=== PATIENT | male | born 1945 | race Caucasian/White ===

== ENCOUNTER 2017-08-07 07:45 | Outpatient (CLI) | payer MEDICARE ==
[2017-08-07 12:28] LABS: BASOPHILS # (AUTO) 0.1 10^3/uL (0.0-0.1); BASOPHILS % (AUTO) 0.8 %; EOSINOPHILS # (AUTO) 0.6 10^3/uL (0.0-0.7); EOSINOPHILS % (AUTO) 8.1 %; HGB - HEMOGLOBIN 15.3 g/dL (14.0-18.0); LYMPHOCYTES # (AUTO) 1.9 10^3/uL (1.5-3.5); LYMPHOCYTES % (AUTO) 26.2 %; MEAN CORPUSCULAR HEMOGLOBIN 30.4 pg (27.0-31.0); MEAN CORPUSCULAR VOLUME 89.3 fL (80.0-94.0); MEAN PLATELET VOLUME 7.7 fL (7.4-11.4); MONOCYTES # (AUTO) 0.7 10^3/uL (0.0-1.0); MONOCYTES % (AUTO) 9.9 %; NEUTROPHILS # (AUTO) 4.1 10^3/uL (1.5-6.6); PLT - PLATELET COUNT 323 10^3/uL (130-450); RED BLOOD COUNT 5.05 10^6/uL (4.70-6.10); RED CELL DISTRIBUTION WIDTH 13.2 % (12.0-15.0); WHITE BLOOD COUNT 7.4 x10^3/uL (4.8-10.8)
[2017-08-07 13:02] LABS: ALBUMIN 4.2 g/dL (3.2-5.5); ALBUMIN/GLOBULIN RATIO 1.3 (1.0-2.2); ALKALINE PHOSPHATASE 54 IU/L (42-121); ALT ALANINE AMINOTRANSFERASE 16 IU/L (10-60); AST ASPARTATE AMINOTRANSFERASE 17 IU/L (10-42); BILIRUBIN,TOTAL 0.5 mg/dL (0.2-1.0); BUN - BLOOD UREA NITROGEN 21 mg/dL (6-20); CALCIUM 9.5 mg/dL (8.5-10.3); CARBON DIOXIDE - CO2 26 mmol/L (21-32); CHLORIDE 103 mmol/L (101-111); CHOL/HDL RATIO 3.3 (<5.0); CHOLESTEROL 170 mg/dL; CREATININE 0.8 mg/dL (0.6-1.2); GFR - MDRD 96 (>89); GLUCOSE 106 mg/dL (70-100); HDL CHOLESTEROL 52 mg/dL; LDL CHOLESTEROL,CALCULATED 103 mg/dL; SODIUM 136 mmol/L (135-145); TOTAL PROTEIN 7.4 g/dL (6.7-8.2); VLDL CHOLESTEROL 15 mg/dL
== END 2017-08-07 07:46 | disposition home or self-care (01) ==
LOC: LAB.WCP 07:45
PROVIDERS: ATTEND Family Medicine
DX: Z13.220 Encounter for screening for lipoid disorders (principal); I10 Essential (primary) hypertension
CPT/HCPCS: 36415; 80053; 80061; 85025; G0103; 84153

== ENCOUNTER 2018-03-30 12:47 | Outpatient (CLI) | payer MEDICARE ==
[2018-03-30 12:37] LABS: BILIRUBIN,URINE NEGATIVE (NEGATIVE); GLUCOSE, URINE (UA) NEGATIVE (NEGATIVE); KETONES,URINE (UA) NEGATIVE (NEGATIVE); LEUKOCYTE ESTERASE, URINE NEGATIVE (NEGATIVE); NITRITE,URINE NEGATIVE (NEGATIVE); OCCULT BLOOD,URINE NEGATIVE (NEGATIVE); PROTEIN,URINE NEGATIVE (NEGATIVE); UROBILINOGEN,URINE 0.2 (NORMAL) E.U./dL (NORMAL)
[2018-03-30 12:39] LABS: CLARITY,URINE CLEAR (CLEAR)
[2018-03-30 12:43] LABS: CALCIUM 9.6 mg/dL (8.5-10.3); CREATININE 0.9 mg/dL (0.6-1.2)
[2018-03-30 13:11] LABS: BACTERIA,URINE Rare /HPF (None Seen); HB2 TOTAL 16.4 g/dL; HEMOGLOBIN A1C 0.62 g/dL; HEMOGLOBIN A1C % 5.6 % (4.6-6.2); RBC,URINE 0-5 /HPF (0-5); SQUAMOUS EPITHELIAL CELL,UR NONE SEEN (<= Few)
== END 2018-03-30 12:48 | disposition home or self-care (01) ==
LOC: LAB.WCP 12:47
PROVIDERS: ATTEND Family Medicine
DX: R73.9 Hyperglycemia, unspecified (principal); I10 Essential (primary) hypertension
CPT/HCPCS: 36415; 80048; 81001; 83036

== ENCOUNTER 2018-11-05 08:00 | Outpatient (CLI) | payer MEDICARE ==
[2018-11-05 12:50] LABS: BASOPHILS # (AUTO) 0.1 10^3/uL (0.0-0.1); BASOPHILS % (AUTO) 1.1 %; EOSINOPHILS # (AUTO) 0.6 10^3/uL (0.0-0.7); HGB - HEMOGLOBIN 14.9 g/dL (14.0-18.0); LYMPHOCYTES # (AUTO) 1.8 10^3/uL (1.5-3.5); LYMPHOCYTES % (AUTO) 24.2 %; MEAN CORPUSCULAR HEMOGLOBIN 29.9 pg (27.0-31.0); MEAN CORPUSCULAR HGB CONC 33.4 g/dL (32.0-36.0); MEAN CORPUSCULAR VOLUME 89.6 fL (80.0-94.0); MEAN PLATELET VOLUME 8.1 fL (7.4-11.4); MONOCYTES # (AUTO) 0.8 10^3/uL (0.0-1.0); MONOCYTES % (AUTO) 10.7 %; NEUTROPHILS # (AUTO) 4.1 10^3/uL (1.5-6.6); PLT - PLATELET COUNT 347 10^3/uL (130-450); RED BLOOD COUNT 4.98 10^6/uL (4.70-6.10); RED CELL DISTRIBUTION WIDTH 13.4 % (12.0-15.0); WHITE BLOOD COUNT 7.3 x10^3/uL (4.8-10.8)
[2018-11-05 13:22] LABS: ALBUMIN 4.2 g/dL (3.2-5.5); ALBUMIN/GLOBULIN RATIO 1.4 (1.0-2.2); ALKALINE PHOSPHATASE 51 IU/L (42-121); ALT ALANINE AMINOTRANSFERASE 14 IU/L (10-60); AST ASPARTATE AMINOTRANSFERASE 21 IU/L (10-42); BILIRUBIN,TOTAL 1.3 mg/dL (0.2-1.0); BUN - BLOOD UREA NITROGEN 19 mg/dL (6-20); CALCIUM 9.3 mg/dL (8.5-10.3); CARBON DIOXIDE - CO2 27 mmol/L (21-32); CHLORIDE 102 mmol/L (101-111); CHOL/HDL RATIO 3.6 (<5.0); CHOLESTEROL 167 mg/dL; CREATININE 0.8 mg/dL (0.6-1.2); GFR - MDRD 95 (>89); GLUCOSE 108 mg/dL (70-100); HDL CHOLESTEROL 47 mg/dL; LDL CHOLESTEROL,CALCULATED 107 mg/dL; LDL/HDL RATIO 2.3 (<3.6); SODIUM 138 mmol/L (135-145); TOTAL PROTEIN 7.1 g/dL (6.7-8.2); VLDL CHOLESTEROL 13 mg/dL
[2018-11-05 13:23] LABS: PSA FREE 0.093 ng/mL (0.16-2.81)
[2018-11-05 13:25] LABS: PSA TOTAL 0.425 ng/mL (0.000-2.000)
[2018-11-05 13:32] LABS: HB2 TOTAL 16.3 g/dL; HEMOGLOBIN A1C 0.65 g/dL; HEMOGLOBIN A1C % 5.8 % (4.6-6.2)
== END 2018-11-05 23:59 | disposition home or self-care (01) ==
LOC: LAB.WCP 08:00
PROVIDERS: ATTEND Family Medicine
DX: I10 Essential (primary) hypertension (principal); R73.9 Hyperglycemia, unspecified; N40.1 Benign prostatic hyperplasia with lower urinary tract symptoms
CPT/HCPCS: 36415; 80053; 80061; 83036; 83721; 84153; 84154; 85025

== ENCOUNTER 2019-05-20 08:00 | Outpatient (CLI) | payer MEDICARE ==
[2019-05-20 19:43] LABS: HB2 TOTAL 15.9 g/dL; HEMOGLOBIN A1C 0.63 g/dL; HEMOGLOBIN A1C % 5.8 % (4.6-6.2)
== END 2019-05-20 08:01 | disposition home or self-care (01) ==
LOC: LAB.N 08:00
PROVIDERS: ATTEND Family Medicine
DX: R73.9 Hyperglycemia, unspecified (principal)
CPT/HCPCS: 36415; 83036

== ENCOUNTER 2019-07-11 13:37 | Outpatient (CLI) | payer MEDICARE ==
--- NOTE | 2019-07-12 17:15 | XRAY Report ---
Reason: PND Procedure Date: 07/11/2019 Accession Number: [id number] / [id number] Procedure: XRN - Chest 2 View X-Ray CPT Code: 41893 Final Report FULL RESULT: EXAM: CHEST RADIOGRAPHY EXAM DATE: 07/11/2019 01:53 PM. CLINICAL HISTORY: Dyspnea COMPARISON: 05/02/2015 9:50 AM. TECHNIQUE: 2 views. FINDINGS: Lungs/Pleura: No focal opacities evident. No pleural effusion. No pneumothorax. Normal volumes. Mediastinum: Heart and mediastinal contours are unremarkable. Other: Degenerative changes in the spine. IMPRESSION: No acute process seen in the chest. RADIA
== END 2019-07-11 13:38 | disposition home or self-care (01) ==
LOC: DI.N 13:37
PROVIDERS: ATTEND Physician Assistant Medical
DX: R06.00 Dyspnea, unspecified (principal)
CPT/HCPCS: 36415; 71046; 80048; 83880; 85027

== ENCOUNTER 2019-07-11 13:54 | Outpatient (CLI) | payer MEDICARE ==
[2019-07-11 18:31] LABS: HGB - HEMOGLOBIN 15.6 g/dL (14.0-18.0); MEAN CORPUSCULAR VOLUME 93.7 fL (80.0-94.0); MEAN PLATELET VOLUME 9.6 fL (7.4-11.4); RED BLOOD COUNT 5.2 10^6/uL (4.70-6.10); RED CELL DISTRIBUTION WIDTH 12.9 % (12.0-15.0); WHITE BLOOD COUNT 10.4 x10^3/uL (4.8-10.8)
[2019-07-11 18:40] LABS: CALCIUM 9.6 mg/dL (8.5-10.3); CREATININE 0.9 mg/dL (0.6-1.2)
== END 2019-07-11 23:59 | disposition home or self-care (01) ==
LOC: LAB.N 13:54
PROVIDERS: ATTEND Physician Assistant Medical
DX: R06.09 Other forms of dyspnea (principal)
CPT/HCPCS: 36415; 80048; 83880; 85027

== ENCOUNTER 2020-01-16 09:53 | Outpatient (CLI) | payer MEDICARE ==
[2020-01-16 12:27] LABS: BASOPHILS # (AUTO) 0.1 10^3/uL (0.0-0.1); EOSINOPHILS # (AUTO) 0.5 10^3/uL (0.0-0.7); EOSINOPHILS % (AUTO) 4.9 %; HGB - HEMOGLOBIN 14.3 g/dL (14.0-18.0); LYMPHOCYTES # (AUTO) 1.6 10^3/uL (1.5-3.5); LYMPHOCYTES % (AUTO) 16.9 %; MEAN CORPUSCULAR HGB CONC 31.4 g/dL (32.0-36.0); MEAN CORPUSCULAR VOLUME 92.3 fL (80.0-94.0); MEAN PLATELET VOLUME 9.4 fL (7.4-11.4); MONOCYTES % (AUTO) 10.1 %; NEUTROPHILS # (AUTO) 6.3 10^3/uL (1.5-6.6); NEUTROPHILS % (AUTO) 66.1 %; PLT - PLATELET COUNT 361 10^3/uL (130-450); RED BLOOD COUNT 4.93 10^6/uL (4.70-6.10); RED CELL DISTRIBUTION WIDTH 12.9 % (12.0-15.0); WHITE BLOOD COUNT 9.4 x10^3/uL (4.8-10.8)
[2020-01-16 12:49] LABS: HB2 TOTAL 14.9 g/dL; HEMOGLOBIN A1C 0.61 g/dL; HEMOGLOBIN A1C % 5.9 % (4.6-6.2)
[2020-01-16 12:59] LABS: ALBUMIN/GLOBULIN RATIO 1.4 (1.0-2.2); ALKALINE PHOSPHATASE 58 IU/L (42-121); ALT ALANINE AMINOTRANSFERASE 12 IU/L (10-60); AST ASPARTATE AMINOTRANSFERASE 14 IU/L (10-42); BILIRUBIN,TOTAL 0.8 mg/dL (0.2-1.0); BUN - BLOOD UREA NITROGEN 35 mg/dL (6-20); CALCIUM 9.2 mg/dL (8.5-10.3); CARBON DIOXIDE - CO2 26 mmol/L (21-32); CHLORIDE 102 mmol/L (101-111); CHOL/HDL RATIO 3.3 (<5.0); CHOLESTEROL 161 mg/dL; CREATININE 1.2 mg/dL (0.6-1.2); GLUCOSE 97 mg/dL (70-100); HDL CHOLESTEROL 49 mg/dL; LDL CHOLESTEROL,CALCULATED 89 mg/dL; LDL/HDL RATIO 1.8 (<3.6); SODIUM 139 mmol/L (135-145); TOTAL PROTEIN 6.8 g/dL (6.7-8.2); VLDL CHOLESTEROL 23 mg/dL
== END 2020-01-16 23:59 | disposition home or self-care (01) ==
LOC: LAB.WCP 09:53
PROVIDERS: ATTEND Family Medicine
DX: R73.9 Hyperglycemia, unspecified (principal); Z13.220 Encounter for screening for lipoid disorders; N40.1 Benign prostatic hyperplasia with lower urinary tract symptoms; J32.9 Chronic sinusitis, unspecified; G47.30 Sleep apnea, unspecified
CPT/HCPCS: 36415; 80053; 80061; 83036; 83721; 84153; 84443; 85025

== ENCOUNTER 2020-11-09 19:34 | Outpatient (CLI) | payer MEDICARE | END 2020-11-09 19:35 | disposition critical access hospital (66) | LOC: EMS 19:34 | DX: I46.9 Cardiac arrest, cause unspecified (principal) | CPT/HCPCS: A0425; A0427 ==

== ENCOUNTER 2020-11-09 19:42 | Emergency (ER) | payer MEDICARE ==
[2020-11-09] MEDS ORDERED: AMIODARONE 360 MG/200 ML 200 ML IV ONE (19:55)
[2020-11-09] MEDS ORDERED: SODIUM CHLORIDE 0.9% 1,000 ML IV STA ×2 (19:56→20:27)
[2020-11-09 20:05] LABS: EOSINOPHILS % (AUTO) 3.7 %; HCT - HEMATOCRIT 48.7 % (42.0-52.0); HGB - HEMOGLOBIN 15.2 g/dL (14.0-18.0); LYMPHOCYTES % (AUTO) 31.1 %; MEAN CORPUSCULAR HGB CONC 31.2 g/dL (32.0-36.0); MEAN CORPUSCULAR VOLUME 92.9 fL (80.0-94.0); MONOCYTES % (AUTO) 7.3 %; PLT - PLATELET COUNT 420 10^3/uL (130-450); RED BLOOD COUNT 5.24 10^6/uL (4.70-6.10); RED CELL DISTRIBUTION WIDTH 13.4 % (12.0-15.0); WHITE BLOOD COUNT 18.9 x10^3/uL (4.8-10.8)
[2020-11-09 20:07] LABS: ABNORMAL LYMPHS % (MANUAL) 0 %
--- NOTE | 2020-11-09 20:10 | ED Physician Documentation ---
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 He got pale and passed out. He did not respond. EMS was called and they found him in V. fib. CPR was started by prehospital providers after just a few minutes.) Preceding symptoms: Diaphoresis, Weakness, NV Contributing factors: Other (hypertension). No: CAD, Diabetes Witnessed: Arrest witnessed Fall: No fall Bystander CPR: No bystander CPR, Downtime before CPR (4 minutes) EMS findings: Apneic, Pulseless, V fib Treatment GEOMETRY PROFESSOR: CPR, Defibrillated, Intubated, Epi, Amiodarone Advanced directive: No advanced directive Review of Systems Unable to obtain: Unresponsive, Other (info subsequently from in ER) Constitutional: denies: Fever Cardiac: denies: Chest pain / pressure Respiratory: denies: Cough GI: denies: Abdominal Pain, Vomiting, Diarrhea Neurologic: reports: Generalized weakness (just today after work) PD PAST MEDICAL HISTORY - Past Medical History Cardiovascular: Hypertension Respiratory: None Neuro: None Endocrine/Autoimmune: None - Present Medications Home Medications: Ambulatory Orders Medication Instructions Recorded Confirmed Hydrochlorothiazide 25 mg PO DAILY 11/09/20 11/09/20 Losartan Potassium [Cozaar] 100 mg PO DAILY 11/09/20 11/09/20 - Allergies Allergies/Adverse Reactions: Allergies Allergy/AdvReac Type Severity Reaction Status Date / Time No Known Drug Allergies Allergy Verified 11/09/20 20:37 - Living Situation Living Situation: reports: With spouse/s.o. Living Arrangement: reports: At home - Social History Does the pt smoke?: No PD ED PE NORMAL - Vitals Vital signs reviewed: Yes - General General: Other (Arrived intubated with ROSC, pulses palpable. Some effort of breathing over bagged rate. ) - HEENT HEENT: Pharynx benign, Other (ETT in place, good breath sounds bilaterally. ) - Neck Neck: No JVD - Cardiac Cardiac: RRR, No murmur - Respiratory Respiratory: Clear bilaterally - Abdomen Abdomen: Other (mild distension of abdomen). No: Normal bowel sounds (diminished) - Derm Derm: Normal color, Warm and dry - Neuro Neuro: Other (some respiratory effort with BVM assisting. ) Eye Opening: None Motor: None Verbal: None (intubated) GCS Score: 3 Results - Vitals Vitals: Vital Signs - 24 hr 11/09/20 11/09/20 11/09/20 19:42 20:34 20:37 Temperature 35.8 C L Heart Rate 117 H 96 99 Respiratory 15 Rate Blood Pressure 166/95 H 114/77 O2 Saturation 99 99 11/09/20 11/09/20 20:50 20:52 Temperature 35.8 C L 35.8 C L Heart Rate 91 101 H Respiratory 21 12 Rate Blood Pressure 120/71 121/75 O2 Saturation 94 100 Oxygen O2 Source Room air - EKG (time done) 20:29 Rate: Rate (enter#) (100) Intervals: LBBB Ischemia: ST elevation c/w ischemia (anterior leads) Compare to prior EKG: Old EKG unavailable - Labs Labs: Laboratory Tests 11/09/20 11/09/20 11/09/20 19:58 19:58 19:58 WBC 18.9 H RBC 5.24 Hgb 15.2 Hct 48.7 MCV 92.9 MCH 29.0 MCHC 31.2 L RDW 13.4 Plt Count 420 MPV 9.0 Neut # (Auto) Not Reportable Lymph # (Auto) Not Reportable [place] # (Auto) Not Reportable Eos # (Auto) Not Reportable Baso # (Auto) Not Reportable Absolute Nucleated RBC Not Reportable Total Counted 100 Band Neuts % (Manual) 3 Abnorm Lymph % (Manual) 0 Metamyelocytes % 3 H Nucleated RBC % Not Reportable Neutrophils # (Manual) 9.3 H Lymphocytes # (Manual) 7.2 H Monocytes # (Manual) 1.1 H Eosinophils # (Manual) 0.8 H Basophils # (Manual) 0.0 Differential Comment MANUAL DIFFERENTIAL WBC Morphology NORMAL APPEARANCE Platelet Estimate NORMAL (130-450,000) Platelet Morphology NORMAL APPEARANCE RBC Morph Micro Appear NORMAL APPEARANCE PT 13.1 H INR 1.2 APTT 26.2 Bld Gas Analysis Time Sample Site ABG pH ABG pCO2 ABG pO2 ABG HCO3 ABG Total CO2 ABG O2 Saturation ABG Base Excess Noel Test Respiration Rate O2 Delivery Device Vent Mode FiO2 Tidal Volume PEEP Sodium 138 Potassium 3.1 L Chloride 104 Carbon Dioxide 17 L Anion Gap 17.0 H BUN 22 H Creatinine 1.0 Estimated GFR (MDRD) 73 L Glucose 202 H Calcium 9.2 Total Bilirubin 1.2 H AST 205 H ALT 174 H Alkaline Phosphatase 71 Troponin I High Sens Total Protein 7.2 Albumin 4.1 Globulin 3.1 Albumin/Globulin Ratio 1.3 Lipase 30 11/09/20 11/09/20 19:58 20:15 WBC RBC Hgb Hct MCV MCH MCHC RDW Plt Count MPV Neut # (Auto) Lymph # (Auto) [place] # (Auto) Eos # (Auto) Baso # (Auto) Absolute Nucleated RBC Total Counted Band Neuts % (Manual) Abnorm Lymph % (Manual) Metamyelocytes % Nucleated RBC % Neutrophils # (Manual) Lymphocytes # (Manual) Monocytes # (Manual) Eosinophils # (Manual) Basophils # (Manual) Differential Comment WBC Morphology Platelet Estimate Platelet Morphology RBC Morph Micro Appear PT INR APTT Bld Gas Analysis Time 2020 Sample Site LEFT RADIAL ABG pH 7.22 L ABG pCO2 43 ABG pO2 239 H* ABG HCO3 16.8 L ABG Total CO2 18.2 L ABG O2 Saturation 99 H ABG Base Excess -10.5 L Noel Test POSITIVE Respiration Rate 12 O2 Delivery Device VENTILATOR Vent Mode ASSIST/CONTROL FiO2 100.00 Tidal Volume 500 PEEP 5 Sodium Potassium Chloride Carbon Dioxide Anion Gap BUN Creatinine Estimated GFR (MDRD) Glucose Calcium Total Bilirubin AST ALT Alkaline Phosphatase Troponin I High Sens 136.3 H* Total Protein Albumin Globulin Albumin/Globulin Ratio Lipase - Rads (name of study) chest xray Radiology: Prelim report reviewed (ETT in good position. bilateral upper henson congestion likely edema. ), See rad report PD MEDICAL DECISION MAKING - ED course Complexity details: reviewed results, considered differential (acute cardiac vfib arrest with ROSC by EMS. Presume acute cardiac event. ) ED course: And had an acute witnessed collapse with EMS findings of V. fib arrest and prehospital ACLS measures leading to ROSC. The patient arrives with intubation and palpable pulses and adequate blood pressure just about 100 systolic. Post resuscitative measures were initiated with amiodarone drip and low-dose norepinephrine. He was given aspirin rectally and cooling was initiated. He did have some breathing effort and bucking at the tube intermittently so given Ativan initially. Anesthesia was present in the ER and placed a central line. We will initiate propofol and heparin drips as well. Initial emphasis was on proper tube placement and evaluation of blood pressure and heart rate. As soon as possible, we did obtain an EKG during the efforts and this showed a left bundle branch with even that at a likely ST elevations in the anterior leads. Contact was made with [facility] who initially placed us in contact with the calciminer. The calciminer asked that we contact Dr. Rockwell who is on for cardiology. I talked with him and we sent an EKG to the ER. He asked that we contact the ER directly. I talked with Dr. Miller in the emergency room who accepted transfer of the patient. The patient remained stable with now some shoulder and arm movements, breathing rate slightly above the ventilator. Blood pressure remains adequate at between 110 and 120 systolic. Heart rate remained stable in the 80s. Helicopter transfer will be initiated. The patient is a [facility] patient and we did contact [facility] coordinating provider who gave approval for treatment and transfer to whatever facility we deemed appropriate. 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 - Critical Care Time(min): 65 Time Includes: Direct patient care, Reassess patient, Coordinate care, Medical consult, Family consult for tx dec Data interpretation: Labs, Pulse ox, ABG, CXR Procedures excluded from critical care time: EKG Departure - Departure Disposition: 02 Transfer Acute Care Hosp Clinical Impression: Cardiac arrest, Signs of return of spontaneous circulation, Ventricular fibrillation Myocardial infarction Qualifiers: Myocardial infarction type: unspecified Involved coronary artery: unspecified coronary artery Qualified Code(s): I21.9 - Acute myocardial infarction, unspecified Condition: Critical Record reviewed to determine appropriate education?: Yes
[2020-11-09 20:16] LABS: INR 1.2 (0.8-1.2); PT - PROTHROMBIN TIME 13.1 secs (9.9-12.6)
[2020-11-09 20:20] LABS: ALBUMIN 4.1 g/dL (3.2-5.5); ALBUMIN/GLOBULIN RATIO 1.3 (1.0-2.2); BILIRUBIN,TOTAL 1.2 mg/dL (0.2-1.0); CALCIUM 9.2 mg/dL (8.5-10.3); POTASSIUM 3.1 mmol/L (3.5-5.0); TOTAL PROTEIN 7.2 g/dL (6.7-8.2)
[2020-11-09 20:23] LABS: PARTIAL THROMBOPLASTIN TIME 26.2 secs (24.9-33.3)
[2020-11-09 20:24] LABS: ABG PCO2 43 mmHg (34-45); ABG PH 7.22 (7.35-7.45)
--- NOTE | 2020-11-09 20:24 | XRAY Report ---
PROCEDURE: Chest 1 View X-Ray INDICATIONS: chest pain TECHNIQUE: One view of the chest was acquired. COMPARISON: CXR 07/11/2019. FINDINGS: Surgical changes and devices: Endotracheal tube in the lower trachea approximately 3.57 m above the c lorrie. External pacing pads. Lungs and pleura: No pleural effusions or pneumothorax. Bilateral upper lobe airspace opacity. Mediastinum: Mediastinal contours appear normal. Heart size is prominent. Bones and chest wall: No suspicious bony lesions. Overlying soft tissues appear unremarkable. IMPRESSION: Endotracheal tube in the lower trachea. Bilateral upper lobe airspace opacities. This could be due to infectious/inflammatory etiology or pul monary edema. Reviewed by: Nicolás Siddiqi MD on 11/09/2020 8:23 PM PDT Approved by: Nicolás Siddiqi MD on 11/09/2020 8:23 PM PDT Station ID: [id number]
[2020-11-09 20:25] LABS: ABG BASE EXCESS -10.5 mmol/L (-2.0-3.0); ABG HCO3 16.8 mmol/L (22.0-26.0); ABG OXYGEN SATURATION 99 % (94-98); ABG TCO2 18.2 MMOL/L (21.0-29.0); ALLEN TEST POSITIVE
[2020-11-09 20:26] LABS: ABG MODE OF VENTILATION ASSIST/CONTROL; ABG RESPIRATORY RATE 12 b/min
[2020-11-09] MEDS ORDERED: LORazepam 2 MG/ML VIAL IVP STA (20:27)
[2020-11-09 20:34] LABS: ABG PO2 239 mmHg (80-100)
[2020-11-09] MEDS ORDERED: ASPIRIN 300 MG SUPP PR STA (20:44)
[2020-11-09 20:46] LABS: BAND NEUTROPHILS % (MANUAL) 3 %; EOSINOPHILS # (MANUAL) 0.8 10^3/uL (0-0.7); LYMPHOCYTES # (MANUAL) 7.2 10^3/uL (1.5-3.5); LYMPHOCYTES % (MANUAL) 38 %; METAMYELOCYTES % (MANUAL) 3 %; MONOCYTES # (MANUAL) 1.1 10^3/uL (0.0-1.0); NEUTROPHILS # (MANUAL) 9.3 10^3/uL (1.5-6.6); PLATELET ESTIMATE, MANUAL NORMAL (130-450,000) (NORMAL); PLATELET MORPHOLOGY NORMAL APPEARANCE (NORMAL); RBC MORPHOLOGY (MULTIPLE) NORMAL APPEARANCE (NORMAL); WBC MORPHOLOGY (MULTIPLE) NORMAL APPEARANCE (NORMAL)
[2020-11-09 20:47] LABS: DIFFERENTIAL COMMENT MANUAL DIFFERENTIAL
--- NOTE | 2020-11-09 21:07 | ANESTHESIA PROCEDURE NOTE ---
Anesth Central Line Template - Central Line Central Line Preparation: Unable to obtain consent, Time out completed, Ultra sound used, Sterile prep and drape Central line location: Right IJ Central line type: Triple lumen Central line catheter tip site resides: Superior vena cava (SVC) Central line aftercare: Chlorhexidine disc placed, Secured, Placement confirmed, No complications, Pt tolerated well
[2020-11-09] MEDS ORDERED: PROPOFOL 500 MG/50 ML 500 MG/50 ML VIAL IV STA ×2 (21:10→21:49)
--- NOTE | 2020-11-09 21:54 | XRAY Report ---
PROCEDURE: Chest for Line Placement INDICATIONS: POST CENTRAL LINE PLACEMENT TECHNIQUE: One view of the chest was acquired. COMPARISON: CXR earlier today, 07/11/2019. FINDINGS: Superior lung apices are outside the field of view. Surgical changes and devices: Right IJ central venous line with the catheter tip projecting over the middle third of the SVC. Endotracheal tube in the lower trachea. Enteric tube coursing into the stoma ch.. Lungs and pleura: No pleural effusions. No pneumothorax is visualized. Upper lobe airspace opacity b ilaterally. Mediastinum: Mediastinal contours appear normal. Heart size is normal. Bones and chest wall: No suspicious bony lesions. Overlying soft tissues appear unremarkable. IMPRESSION: No pneumothorax is visualized. The most superior aspect of the lung apices is outside the field of vi ew. When feasible recommend repeat chest x-ray. New right IJ central venous line with the tip projecting over the middle third of the SVC. Enteric tu be coursing into the stomach. Bilateral upper lobe airspace opacity. Reviewed by: Nicolás Siddiqi MD on 11/09/2020 9:53 PM PDT Approved by: Nicolás Siddiqi MD on 11/09/2020 9:53 PM PDT Station ID: [id number]
[2020-11-09] MEDS ORDERED: HEPARIN 25000UNITS/500ML (D5W) 25,000 UNIT/500 ML BAG IV SCH (22:00)
[2020-11-09 22:26] VITALS: BP 144/85
[2020-11-09 22:53] LABS: B. PARAPERTUSSIS- RESP PCR PAN NOT DETECTED; B. PERTUSSIS- RESP PCR PANEL NOT DETECTED; C. PNEUMONIAE- RESP PCR PANEL NOT DETECTED; CORONAVIRUS 229E-RESP PCR NOT DETECTED; CORONAVIRUS HKU1-RESP PCR NOT DETECTED; CORONAVIRUS NL63-RESP PCR NOT DETECTED; CORONAVIRUS OC43-RESP PCR NOT DETECTED; HUMAN METAPNEUMOVIRUS NOT DETECTED; INFLUENZA A- RESP PCR PANEL NOT DETECTED; INFLUENZA B - RESP PCR PANEL NOT DETECTED; M. PNEUMONIAE- RESP PCR PANEL NOT DETECTED; PARAINFLUENZA VIRUS 1 NOT DETECTED; PARAINFLUENZA VIRUS 2 NOT DETECTED; PARAINFLUENZA VIRUS 3 NOT DETECTED; PARAINFLUENZA VIRUS 4 NOT DETECTED; RHINOVIRUS/ENTEROVIRUS NOT DETECTED; RSV- RESP PCR PANEL NOT DETECTED; SARS-CoV-2 -RESP PCR PANEL NOT DETECTED
== END 2020-11-09 22:00 | disposition short-term general hospital (02) ==
LOC: EDUNIT# → ED 19:42
DX: I21.9 Acute myocardial infarction, unspecified (principal); I49.01 Ventricular fibrillation; I44.7 Left bundle-branch block, unspecified; I46.9 Cardiac arrest, cause unspecified; I10 Essential (primary) hypertension; Z20.822 Contact with and (suspected) exposure to COVID-19
CPT/HCPCS: 36415; 36556; 36600; 43753; 51702; 71045; 80053; 82803; 83690; 84484; 85025; 85610; 85730; 87631; 92950; 93005; 96365; 96366; 96368; 96375; 96376; 99291; A9270; J0282; J2060; 0202U; 94770